=== PATIENT | male | born 1945 | race Caucasian/White ===

== ENCOUNTER 2018-03-27 17:54 | Emergency (ER) | payer MEDICARE ==
[~2018-03-27] VITALS: Ht 182.9 cm; Wt 75.0 kg
[~2018-03-27 17:54] MED LIST: CIPROFLOXACN500 MG PO; CLONIDINE0.1 MG PO; DICLOXACILL500 MG PO; FLUZONE SPLT1 M1 IM; HYDRALAZINE HC100 MG PO; LOPRESSOR25 MG PO; MELOXICAM7.5 MG PO; NEORAL25 MG PO; RAPAMUNE1 MG PO; TRAMADOL HCL50 MG PO
[2018-03-27] MEDS ORDERED: MYCOPHENOLATE500 MG PO (18:30)
[2018-03-27 18:32] LABS: HEMATOCRIT 40.8 % (39.0-50.0); HEMOGLOBIN 13.6 g/dl (14.0-18.0); IMMATURE GRANULOCYTES 0.5 % (0.0-5.0); MEAN CELL VOLUME 91.3 fL CALC (80.0-100.0); MEAN CORPUSCULAR HGB 30.4 pG CALC (26.0-32.0); MEAN CORPUSCULAR HGB CONC 33.3 g/L CALC (32.0-36.0); NEUT# 7.11 thou/uL (1.82-7.42); RED BLOOD COUNT 4.47 mill/uL (4.70-6.10); RED CELL DISTRI WIDTH 13.1 % (11.5-15.5)
[2018-03-27] MEDS ORDERED: SIROLIMUS1 MG PO (18:32)
[2018-03-27] MEDS ORDERED: LIPITOR20 MG PO (18:33)
[2018-03-27] MEDS ORDERED: K-TAB20 MEQ PO (18:34)
[2018-03-27] MEDS ORDERED: CARVEDILOL6.25 MG PO (18:34)
[2018-03-27] MEDS ORDERED: TRIAM/HCTZ1 CAP PO (18:35)
[2018-03-27 18:48] LABS: ALBUMIN 4.1 g/dL (3.2-5.0); ALKALINE PHOSPHATASE 93 u/l (38-126); ANION GAP 17 (6-22 (CALC)); BUN 38 mg/dL (8-23); BUN/CREATININE RATIO 20 (12-20 (CALC)); CARBON DIOXIDE 23 mmol/l (22-30); CHLORIDE 99 mmol/l (95-108); CREATININE 1.9 mg/dL (0.7-1.3); GFR 35 ML/MIN (>=60 (CALC)); GFR FOR AFR.AMER. 42 ML/MIN (>=60 (CALC)); POTASSIUM 3.5 mmol/l (3.5-5.1); SGOT/AST 21 u/l (19-48); SODIUM 136 mmol/l (137-146)
[2018-03-27 19:00] LABS: MYOGLOBIN 57 ng/mL (0 - 121)
[2018-03-27 21:00] LABS: URINE BILIRUBIN - DIPSTICK NEGATIVE (NEGATIVE); URINE BLOOD DIPSTICK NEGATIVE (NEGATIVE); URINE COLOR YELLOW; URINE GLUCOSE - DIPSTICK >=1000 mg/dL (NEGATIVE); URINE KETONE NEGATIVE (NEGATIVE); URINE LEUK ESTERASE NEGATIVE (NEGATIVE); URINE NITRITE - DIPSTICK NEGATIVE (Negative); URINE PROTEIN - DIPSTICK 100 mg/dL (NEG-TRACE); URINE SPECIFIC GRAVITY 1.025; URINE UROBILINOGEN - DIPSTICK 0.2 E.U./dL (0.2)
[2018-03-27 21:08] LABS: URINE RBC 0-2 RBC/hpf (0-5); URINE WBC 0-2 WBC/hpf (0-5)
[2018-03-27 21:57] VITALS: BP 165/72
== END 2018-03-27 22:00 | disposition home or self-care (01) ==
LOC: ED 17:54
PROVIDERS: Family Medicine
DX: I95.1 Orthostatic hypotension (principal); E11.65 Type 2 diabetes mellitus with hyperglycemia; E86.1 Hypovolemia; F17.200 Nicotine dependence, unspecified, uncomplicated; Z94.1 Heart transplant status